=== PATIENT | female | born 1940 | race Caucasian/White ===

== ENCOUNTER 2018-02-27 13:40 | Emergency (ER) | payer SELFPAY ==
[~2018-02-27] VITALS: Ht 152.4 cm; Wt 88.5 kg
[~2018-02-27 13:40] MED LIST: ASPIR 8181 MG PO; IBUPROFEN600 MG PO; LAC PO; LEVAQUIN500 MG PO; LIPITOR80 MG PO; MOTRIN800 MG PO; PRILOSEC20 MG PO; ZES10 PO
[2018-02-27 18:27] VITALS: BP 148/80
== END 2018-02-27 18:27 | disposition home or self-care (01) ==
LOC: ED 13:40
DX: M75.31 Calcific tendinitis of right shoulder (principal); E78.00 Pure hypercholesterolemia, unspecified; Z98.890 Other specified postprocedural states
CPT/HCPCS: Q0092

== ENCOUNTER 2019-09-10 07:58 | Emergency (ER) | payer MEDICAID ==
[~2019-09-10] VITALS: Ht 160 cm; Wt 91.6 kg
[2019-09-10 08:07] VITALS: Ht 160 cm; Wt 91.6 kg
[2019-09-10 09:23] LABS: BASOPHIL % 0.9 % (0-2); PLATELET COUNT 261 x10^3mcL (130-400); RED CELL DISTRIBUTION WIDTH 14.4 % (11.5-14.5)
[2019-09-10 09:55] LABS: ALBUMIN 3.5 g/dL (3.4-5.0); ALKALINE PHOSPHATASE 109 U/L (46-116); ALT/SGPT 33 U/L (14-59); AST/SGOT 23 U/L (15-37); BILIRUBIN TOTAL 0.2 mg/dL (0.20-1.00); CARBON DIOXIDE 26.8 mmol/L (21-32); CHLORIDE SERUM 103 mmol/L (98-107); CREATININE SERUM 0.8 mg/dL (0.6-1.0); GLUCOSE SERUM 139 mg/dL (74-106); LIPASE 157 IU/L (73-393); POTASSIUM SERUM 3.8 mmol/L (3.5-5.1); SODIUM SERUM 139 mmol/L (136-145); TOTAL PROTEIN, SERUM 7.6 g/dL (6.4-8.2)
[2019-09-10 10:05] LABS: CALCIUM 8.7 mg/dL (8.5-10.1)
[2019-09-10 14:11] VITALS: BP 161/89
== END 2019-09-10 12:00 | disposition home or self-care (01) ==
LOC: ED 07:58
PROVIDERS: Emergency Medicine
DX: J18.1 Lobar pneumonia, unspecified organism (principal); R10.30 Lower abdominal pain, unspecified; R73.9 Hyperglycemia, unspecified; I10 Essential (primary) hypertension; K57.90 Diverticulosis of intestine, part unspecified, without perforation or abscess without bleeding; R19.09 Other intra-abdominal and pelvic swelling, mass and lump
CPT/HCPCS: J0456; J0696; J7050; J7060; Q0092; Q9967

== ENCOUNTER 2019-12-16 14:52 | Inpatient (IN) | payer MEDICAID, SELFPAY ==
[~2019-12-16] VITALS: Ht 144.8 cm; Wt 99.8 kg
[2019-12-16 15:50] LABS: BASOPHIL % 1.1 % (0-2); PLATELET COUNT 247 x10^3mcL (130-400)
[2019-12-16 16:06] LABS: CALCIUM 8.9 mg/dL (8.5-10.1); CARBON DIOXIDE 28.4 mmol/L (21-32); CHLORIDE SERUM 106 mmol/L (98-107); CREATININE SERUM 1.3 mg/dL (0.6-1.0); GLUCOSE SERUM 149 mg/dL (74-106); POTASSIUM SERUM 3.7 mmol/L (3.5-5.1); SODIUM SERUM 141 mmol/L (136-145)
[2019-12-16 16:11] LABS: ALBUMIN 3.4 g/dL (3.4-5.0); ALKALINE PHOSPHATASE 99 U/L (46-116); ALT/SGPT 35 U/L (14-59); AST/SGOT 23 U/L (15-37); BILIRUBIN TOTAL 0.27 mg/dL (0.20-1.00); C REACTIVE PROTEIN 1.2 mg/dL (<=0.9); LACTIC DEHYDROGENASE (LDH) 187 U/L (100-190); TOTAL PROTEIN, SERUM 7.5 g/dL (6.4-8.2)
--- NOTE | 2019-12-16 16:28 | NUR ---
PT PRESENTS TO ED FOR EVAL OF "NOT FEELING WELL FOR MORE THAN ONE MONTH"; PT STS HAS INCREASE OF SOB X 2 DAYS; PT HAS BEEN SEEN BY PROVIDER, ORDERS RECD; PT HAS HAD LABS DRAWN/SENT AND NASAL SWABS COMPLETED; CONT TO MONITOR
--- NOTE | 2019-12-16 17:57 | NUR ---
PT RESULTS RTND, PT WILL BE ADMITTED FOR FURTHER EVAL OF POSSIBLE CHF FINDINGS PER ED PROVIDER; PT VERBALIZED UNDERSTANDING
--- NOTE | 2019-12-16 18:02 | NUR ---
PT ALSO FOUND TO BE FLU POSITIVE, ADDITIONAL ORDERS RECD
--- NOTE | 2019-12-16 18:25 | NUR ---
PT ASSESSED BY HOSPITALIST; MEDICATED PER ORDER, WAITING ON BED ASSIGNMENT
--- NOTE | 2019-12-16 18:36 | NUR ---
PT AMBULATED BY SELF TO BR, ERIC WELL, PT GAIT STEADY; WAITING ON BED ASSIGNMENT
--- NOTE | 2019-12-16 19:13 | NUR ---
REPORT GIVEN TO TRINIDAD ARANGO; PT NEEDING ADÁN COVID PRIOR TO TRANSPORT
--- NOTE | 2019-12-16 19:21 | NUR ---
.[id number] REPORT FROM OFF-GOING RN. PT IS LYING IN A SUPIMNE POSITION ON THE GURNEY IN ROOM 7. P0T APPEARS WITH NO DITRESS. UP TO THE BATHROOM TO VOID. AMBULATED WITH A STEADY GATE. PT STATES SHE GOES BACK AND FORTH FROM [place] TO HERE. SHE SAID YOU HAVE TO TAKE CARE OF ME. SHE WQAS VERY UNCOFORTable during THE COVID TESTING.PT IS ADMITTED ; JUST WAITING FOR THE SOP-HIA COVID TEAST TO RESULT.
[2019-12-16 19:46] LABS: CHOLESTEROL/HDL RATIO 4.4
--- NOTE | 2019-12-16 20:10 | NUR ---
PT'S SHIV- JEROME CAME BACK NEGATIVE
[2019-12-16 20:35] LABS: microscopic required? NO
[2019-12-16 20:45] LABS: UA SPECIFIC GRAVITY 1.015 (1.005-1.035); urine erythrocyte NEGATIVE (NEGATIVE)
[2019-12-16 21:19] VITALS: BP 147/53
--- NOTE | 2019-12-16 21:38 | NUR ---
RECEIVED PT FROM ER, PT ADMIT FOR NEW ONSET CHF. PT IS A/O X4, VERBAL RESPONSIVE. LUNG SOUND CLEAR BILATERAL, NO COUGH, NO SOB. PT IS ON TELE 8, NSR, DENY ANY CHEST PAIN OR DISCOMFORT, BOWEL SOUND PRESENT ALL 4 QUADRANTS, NO DISTENTION, NO TENDER. PEDAL PULSE PRESENT BOTH FEET, NO EDEMA, IV AT LEFT HAND, NO LEAKING, NO INFILTRATION. ALL ADLS ASSIST, ALL NEED MET, CALL LIGHT IN REACH, WILL CONTINUE TO MONITOR. PT IS ON DROPLET PRECAUTION FOR R/O COVID.
--- NOTE | 2019-12-16 23:00 | NUR ---
PATIENT IN BED. NO ACUTE DISTRESS NOTED. ADMITTED TO ROOM 210B. PATIENT AMBULATED WITH A STEADY GAIT. WILL CONTINUE TO MONITOR.
--- NOTE | 2019-12-17 00:58 | NUR ---
NO CHANGE TO PATIENT'S CURRENT ASSESSMENT.
[2019-12-17 05:45] VITALS: BP 142/52
--- NOTE | 2019-12-17 05:59 | NUR ---
PATIENT IN BED. NO CHANGES NOTED TO PATIENT'S CURRENT ASSESSMENT.
--- NOTE | 2019-12-17 07:30 | NUR ---
RECEIVED PT FROM PM NURSE. PT IS AWAKE AND RESTING COMFORTABLY AT THIS TIME. NO SIGNS OF FACIAL DISTRESS OR SOB NOTED. PT IS A/OX4. INDONESIAN SPEAKING. ABLE TO MAKE NEEDS KNOWN. DENIES MATHIS/DIZZINESS. DIMINISHED LUNG SOUNDS BILATERALLY. BREATHING E/U ON RA. TELE #8. NSR. DENIES CP/PRESSURE. PALPABLE PULSES. NO EDEMA NOTED. ACTIVE BSX4. ABD SOFT AND ROUND. DENIES N/V/D. VOIDS FREELY. SKIN INTACT. NO C/O PAIN AT THIS TIME. IV 22 TO L HAND. SL. PATENT. FLUSHES WITH NO DIFFICULTY. BED AT LOWEST POSITION. CALL BUTTON WITHIN REACH. WILL CONTINUE TO MONITOR.
[2019-12-17 08:07] LABS: CALCIUM 8.8 mg/dL (8.5-10.1); CARBON DIOXIDE 29.3 mmol/L (21-32); CHLORIDE SERUM 103 mmol/L (98-107); CREATININE SERUM 0.8 mg/dL (0.6-1.0); GLUCOSE SERUM 122 mg/dL (74-106); MAGNESIUM 2.2 mg/dL (1.8-2.4); PHOSPHOROUS 3.8 mg/dL (2.5-4.9); POTASSIUM SERUM 3.5 mmol/L (3.5-5.1); SODIUM SERUM 140 mmol/L (136-145)
[2019-12-17 08:40] VITALS: BP 109/47
[2019-12-17 08:46] LABS: BASOPHIL % 0.6 % (0-2); PLATELET COUNT 250 x10^3mcL (130-400); RED CELL DISTRIBUTION WIDTH 14.3 % (11.5-14.5)
[2019-12-17 13:13] VITALS: BP 146/57
[2019-12-17 14:00] VITALS: BP 153/76
--- NOTE | 2019-12-17 14:17 | NUR ---
Discount pharmacy card and list to [facility] cost medical clinics given to Thang Valdez and he will hand it to patient.
--- NOTE | 2019-12-17 18:39 | NUR ---
NO ACUTE DISTRESS NOTED DURING SHIFT. WILL ENDORSE CARE TO PM SHIFT FOR CONTINUITY OF CARE.
--- NOTE | 2019-12-17 20:12 | NUR ---
PT RECIEVED AAO REG RESP NO SOB R/A SAT 97% PT SITTING ON THE CHAIR,PT HAS HL TO THE LT HAND WITH THE SITE PATENT AND INTACT,PT ON TELE MONITOR AND IN NSR NO ECTOPY OR CHEST PAIN AT THSI TIME,CALL LIGHT EASY REACHED AND WILL CONTINUE TO MONITOR.
[2019-12-17 22:25] VITALS: BP 143/39
[2019-12-18 06:28] VITALS: BP 142/50
--- NOTE | 2019-12-18 06:51 | NUR ---
PT HAD A RESTING NIGHT NO CHANGE AT THIS TIME,WILL CONTINUE TO MONITOR.
[2019-12-18 07:01] LABS: BASOPHIL % 0.7 % (0-2); PLATELET COUNT 241 x10^3mcL (130-400); RED CELL DISTRIBUTION WIDTH 14.3 % (11.5-14.5)
--- NOTE | 2019-12-18 07:17 | NUR ---
RECEIVED PATIENT FROM TRINIDAD GOODSON. PATIENT IN INFLUENZA ISOLATION AT THIS TIME, WILL SPEAK WITH PATIENT ABOUT PLAN OF CARE DURING MORNING ROUNDS.
[2019-12-18 07:37] LABS: CALCIUM 9.1 mg/dL (8.5-10.1); CARBON DIOXIDE 26.3 mmol/L (21-32); CHLORIDE SERUM 100 mmol/L (98-107); CREATININE SERUM 0.7 mg/dL (0.6-1.0); GLUCOSE SERUM 153 mg/dL (74-106); MAGNESIUM 2.1 mg/dL (1.8-2.4); PHOSPHOROUS 3.5 mg/dL (2.5-4.9); POTASSIUM SERUM 3.7 mmol/L (3.5-5.1); SODIUM SERUM 135 mmol/L (136-145)
--- NOTE | 2019-12-18 08:01 | NUR ---
PATIENT OBSERVED LAYING IN BED. KINYARWANDA SPEAKING. STATES SHE IS FEELING PAIN TO HER LEFT ARM. SPOKE WITH PATIENT ABOUT MEDICATIONS AND PLAN FOR THE DAY. PATIENT VERBALIZES UNDERSTANDING AT THIS TIME. WILL CONTINUE TO MONITOR, CALL LIGHT IN REACH. NO S/S OF CHEST PAIN OR SOB.
--- NOTE | 2019-12-18 09:56 | NUR ---
ECHOCARDIOGRAM PENDING-COVID RESULTS PENDING
[2019-12-18 10:06] VITALS: BP 110/50
--- NOTE | 2019-12-18 10:49 | NUR ---
SPOKE WITH PATIENT GRANDDAUGHTER ABOUT PATIENT PLAN OF CARE AND PATIENT CONDITION. UPDATED HER TO PATIENT DIAGNOSIS OF INFLUENZA A AND CHF. EXPLAINED DISEASE PROCESS TO GRANDDAUGHTER. ALL QUESTIONS ADDRESSED AT THIS TIME. PATIENT IN BED ASLEEP, NO SOB NOTED. CALL LIGHT IN REACH.
[2019-12-18 13:46] VITALS: BP 142/53
[2019-12-18 18:25] VITALS: BP 133/51
--- NOTE | 2019-12-18 18:46 | NUR ---
PATIENT OBSERVED AMBULATING TO AND FROM BATHROOM. TRINIDAD GUTHRIE ASSIST WITH TRANSLATION WITH PATIENT. EXPLAINED TO PATIENT THAT SHE HAS THE FLU AND NEW DIAGNOSIS OF CHF. PATIENT HAS CONCERNS ABOUT HEART FAILURE AND STATES SHE DOES NOT HAVE INSURANCE. INFORMED PATIENT THAT THIS NURSE HAD SPOKEN TO HER TWO GRANDDAUGHTERS TO EXPLAIN PLAN OF CARE AND TREATMENT. PATIENT BACK IN BED AT THIS TIME, STATING THAT SHE HAS MILD PAIN TO HER BACK AND SHOULDERS. ALL QUESTIONS ADDRESSED AT THIS TIME, PATIENT LIKELY TO HAVE ADDITIONAL QUESTIONS. WILL ENDORSE TO ONCOMING NURSE.
--- NOTE | 2019-12-18 19:30 | NUR ---
RECEIVED REPORT FROM LORRI ABDI. PT IS AAOX4 AND VATICAN CITIZEN SPEAKING ONLY. PT DENIES MATHIS/DIZZINESS. PT ON TELE #8, NSR W/ PAC'S AND HR 83. PT DENIES CP/PRESSURE. PT PULSES PALPABLE AND CAP REFILL <3 SEC. PT LUNG SOUNDS DIMINISHED ON RA. PT BREATHING E/U. PT DENIES SOB OR RESP DISTRESS. PT ABD SOFT/ROUND WITH ACTIVE BS X4. PT DENIES N/V/C/D. PT VOIDS FREELY WITH BRP. PT IS AMBULATORY. PT SKIN INTACT. PT DENIES S/S OF PAIN OR DISCOMFORT. PT IV TO PATENT/INTACT/SL. PT ON DROPLET ISOLATION FOR INFLUENZA A(+) AND PENDING COVID PCR TEST. ALL NEEDS MET AT THIS TIME. CALL LIGHT WITHIN REACH. BED IN LOWEST POSITION. SIDE RAILS X2 UP. WILL CONTINUE TO MONITOR.
[2019-12-18 21:07] VITALS: BP 108/55
--- NOTE | 2019-12-18 23:03 | NUR ---
PT RESTING COMFORTABLY WITH EYES CLOSED, EASILY AROUSABLE. NO ACUTE DISTRESS NOTED. PT BREATHING E/U ON RA. ALL NEEDS MET. WILL CONTINUE TO MONITOR.
--- NOTE | 2019-12-19 03:20 | NUR ---
PT RESTING COMFORTABLY WITH EYES CLOSED, EASILY AROUSABLE. NO ACUTE DISTRESS NOTED. PT BREATHING E/U ON RA. ALL NEEDS MET. WILL CONTINUE TO MONITOR.
[2019-12-19 05:38] VITALS: BP 126/45
--- NOTE | 2019-12-19 06:29 | NUR ---
PT RESTED COMFORTABLY DURING THE NIGHT WITH NO ACUTE DISTRESS NOTED. PT BREATHING E/U ON RA. PT C/O ABD PAIN 5/10 THIS AM. PER EMAR, ADMINISTERED NORCO PO FOR PAIN. WILL REASSESS PAIN. COMFORT AND SAFETY MEASURES MAINTAINED. ALL QUESTIONS AND CONCERNS ADDRESSED. CALL LIGHT WITHIN REACH. BED IN LOWEST POSITION. SIDE RAILS X2 UP. DROPLET+CONTACT PRECAUTIONS MAINTAINED. WILL ENDORSE TO DAY SHIFT NURSE.
[2019-12-19 07:30] VITALS: BP 105/48
--- NOTE | 2019-12-19 08:20 | NUR ---
RECIEVED PT FROM PREVIOUS SHIFT. THE PT IS RESTING IN BED. PT BREATHING IS EVEN AND UNLABORED ON ROOM AIR. IN NO APPARENT DISTRESS. THE PT HAS AN IV TO THE LEFT HAND THE DRESSING IS C/D/I. PT HAS BEDSIDE COMODE AT [facility]. THE BED IS IN THE LOWEST POSITION AND THE CALL LIGHT IS WITHIN REACH. WILL CONTINUE TO MONITOR.
--- NOTE | 2019-12-19 08:43 | NUR ---
CALLED LAB REGAUKARIING PT COVID TEST. LAB SAID THAT THE SWAB WAS SENT AND THEY ARE STILL WAITING FOR RESULTS TO COME BACK.
--- NOTE | 2019-12-19 09:02 | NUR ---
SPOKE WITH [employer]CIAL [employer] SOFTWARE DEVELOPER CHERYL WILL DO ECHO WITHIN THE NEXT HOUR TO 1 HOUR AND HALF.
--- NOTE | 2019-12-19 11:11 | NUR ---
RECEIVED CALL FROM [employer], PER RESEARCH QUALITY ASSURANCE SPECIALISTJUANITA LUNA PT IS REALLY CONFUSED. CHECKED ON PT PT ABLE TO ANSWER ALL ORIENTATION QUESTIONS, PT REPORTS HAVING ABDOMINAL PAIN STILL, AND HAVE SHOULDER PAIN AND LEFT ARM PAIN, DIANN LAUREANO MADE AWARE, PER DIANN LAUREANO GIVEN LACTULOSE 30 ML PO ONCE SINCE LAST BM WAS 12/15 AND ORDER TORADOL 15 MG IVP Q8HR TO HELP WITH SHOULDER AND ARM PAIN, ORDERS PLACED ACCORDINGLY WILL CARRY OUT.
[2019-12-19 12:30] VITALS: BP 128/58
--- NOTE | 2019-12-19 14:15 | NUR ---
DR. JORDAN AT BEDSIDE, PER DR. JORDAN PT IS CLEARED FROM CARDIAC STANDPOINT.
--- NOTE | 2019-12-19 16:00 | NUR ---
PT TRANSFERED TO MED/SURG. TELE 8 WAS REMOVED AND RETURNED TO THE MOHEL.
--- NOTE | 2019-12-19 18:58 | NUR ---
PT IS SLEEPING IN BED. PT BREATHING IS EVEN AND UNLABORED ON ROOM AIR. PT HAS IV TO THE LEFT HAND. PT BED IS IN THE LOWEST POSTIION AND CALL LIGHT ISWITHIN REACH. WILL ENDORSE TO ONCOMING SHIFT.
[2019-12-19 19:20] VITALS: BP 122/47
--- NOTE | 2019-12-19 19:20 | NUR ---
RECEIVED PT AWAKE ALERT AND VERBALLY RESPONSIVE IN ROMANSH ONLY.BREATHING EASY AND NON-LABORED.DENIES CHESTPAIN.BP 122/47 MMHG,HR 74.EPISODES OF DIARRHEA AFTER ADMINISTRATION OF LACTULOSE EARLIER.ON DROPLET PRECAUTION FOR COVID/PUI.WILL OBSERVE PROTOCOL.WILL CONTINUE TO MONITOR.
--- NOTE | 2019-12-20 04:35 | NUR ---
PT SLEPT WELL ALL NIGHT.DENIES ANY PAIN OR DISCOMFORT.+ BM AFTER LACTULOSE.ON DROPLET PRECAUTION FOR PUI/COVID.GOODHANDWASHING TECHNIQUE OBSERVED.ALL NEEDS MET.WILL CONTINUE TO MONITOR.
[2019-12-20 05:33] VITALS: BP 137/45
[2019-12-20 06:58] LABS: BASOPHIL % 0.4 % (0-2); PLATELET COUNT 263 x10^3mcL (130-400); RED CELL DISTRIBUTION WIDTH 14.1 % (11.5-14.5)
[2019-12-20 07:10] LABS: CALCIUM 9.5 mg/dL (8.5-10.1); CARBON DIOXIDE 29.4 mmol/L (21-32); CHLORIDE SERUM 99 mmol/L (98-107); CREATININE SERUM 0.8 mg/dL (0.6-1.0); GLUCOSE SERUM 121 mg/dL (74-106); SODIUM SERUM 135 mmol/L (136-145)
--- NOTE | 2019-12-20 08:00 | NUR ---
RECEIVED PATIENT RATHER OBESE AND SEEMS MINIMAL MOBILTTY. SHE HAS DIMINSHED BREATH SOUNDS AND HEARD DRY COUGH. SHE HAS BEEN ON BDREST AND IS ABLE TO AMBULATE, BUT SEEMS TIRE AND NOT MOTIVATED AT THIS TIME SHE HAS BEEN GIVEN LASIX AND WILL MONITO TOTUPUT. SHE HAS BEEN WIT MILD CARDIOMEGALY AD INTERSTITIAL PULMONIARY EDEMA. IT SUGGESTS SHE HAS CHF AND SHE HAS HISTOYR OF HTN AND DIABETES WELL. PATIENT HASBEEN SEEN BY DR JORDAN AND SHE HAS BEEN REQUESTNG PAIN MEDICATIO NFO RPAIN AND NORCO AND TORADOL HAVE BEEN GIVEN. SHE HAS GOO EF AND SHE IS SPAINISH SPEAKING ONLY. ENCOURAGE TO DEEP BREATH OFTEN. ENCOURAGE TO AMBULATE TOLERATED AND TO EAT DIET AND FLUIDS TOLERATED.
[2019-12-20 09:44] VITALS: BP 153/54
[2019-12-20] MEDS ORDERED: ATORVASTATIN CA40 M1 PO (10:46)
[2019-12-20] MEDS ORDERED: MUCINEX600 MG PO (10:48)
[2019-12-20] MEDS ORDERED: OSELTAMIVIR PHO30 MG PO (10:50)
--- NOTE | 2019-12-20 11:45 | NUR ---
GAVE PAIN MEDICATION FOR COMPLAINTS OF SHOULDER PAIN. NORCO GIVEN. BLOOD SUGAR AT THIS TIME AT 128 AND NO COVERAGE WAS INDICATED.
[2019-12-20 12:52] VITALS: BP 153/54
[2019-12-20 12:54] VITALS: BP 144/60
--- NOTE | 2019-12-20 13:32 | NUR ---
ORDER FOR DISCHARGE RECEIVED. ISELA PAINTING GAVE A HAND OUT FOR CLASES FOR DIABETES. SHE IS NEW ONSET OF DIABETES WELL CHF. A HALF HOUR LATER THE NETWORK LIAISON CAME AND WANTS THE PATIENT TO SCHEDULE HERSELF FOR HIS CLASS IN [facility]. PATIENT. SHE IS TO CALL ISELA FOR SIGN UP FOR CLASSES IF SHE FEELS NEEDED. HAND OUT GIVEN WITH THE DISCHARGE PAPERWORK PLANNED.
--- NOTE | 2019-12-20 14:20 | NUR ---
Initial Nutrition Assessment - [address] 79Y HR Dx: New Onset CHF PMHx: PNA PSHx: , Hernia Repair Labs: (12/19) WBC 12.1H, NA 135L, BUN 20H, BG 121H, POCBG 131H (12/16) CRP 1.2H, CHOL 225H, LDL 153H, D-dimer 463H, A1C 6.7H Meds: Lipitor, Oseltamivir, Colace PRN meds: Toradol, Colace, [place] Diet: Cardiac Diet PO intake since admission: 88% PO average X 6 meals (flowsheets) Ht: 144.78cm/ 4'8" Wt: 99.79kg/ 219lbs BMI: 47.6 Bed scale: 220# IBW: 43kg/ 95lbs %IBW: 230% UBW: 202lbs Age: 79 Food Allergies: NKFA Skin condition: intact Jared: 20 Edema: pulmonary edema, no other Last BM: 12/18 Per H&P: 79 yo female with no PMHx who presented to ED for SOB and body aches for the past month. Per remberto review patient was previously here in August with a pneumonia, given Doxycycline, and discharged home. Today she presents with similar shortness of breath, headache, body ache, and shoulder pain. She mentioned that her right shoulder hurts and then to the back, but could not quantify it. She also states that her legs have been getting more swollen for the past [address] 12/19: Assessment completed, isolation spoke via phone. Has been eating well has COVID pending and found positive for influenza A on Tamiflu. Has new onset DM2 with HGB A1C of 6.7H and elevated blood sugars. Education given via phone and recommended to attend diabetes education class on Friday afternoon, RN to tell patient. Per patient appetite good this morning affected by medication per Pt, so less than usual. Her average intake per flowsheets is adequate. Will continue to monitor. Problem with: N/V/D/C: Problems with: Chewing: Swallowing: Current appetite: Good most of the day Recent wt change: weight gain unsure %wt change: Vitamin/Supplement use: none Special diet at home: Regular diet Physical activity: unknown Nutrition education given (specify specific nutrition education and handout given): Food-drug interactions? Education given? Estimated Nutritional Needs Based on IBW (43kg) body weight Energy: 1075- 1290 kcal/day (25-30 kcal/kg) Protein: 43- 52 g/day (1.0-1.2 g/kg) Fluid: mL/day (1 mL/kcal) Nutrition Diagnosis: Altered nutrient related labs R/T metabolic dysfunction AEB A1C 6.7H, BG 121H, POCBG 131H, and WBC count 12H Increased nutrient needs R/T viral infection AEB positive for influenza A, prior COVID 19 infection Intervention 1. Consider adjustment to a CCHO (45gm)/Cardiac Diet to best meet blood sugar control and energy needs. Monitor/Evaluate Goal: PO intake at least 75% of estimated needs Monitor: PO intake, Labs, GI function F/U in 3-5 days as moderate risk 12/22-
--- NOTE | 2019-12-20 14:23 | NUR ---
1. Consider adjustment to a CCHO (45gm)/Cardiac Diet to best meet blood sugar control and energy needs.
[2019-12-20 15:45] VITALS: BP 138/60
--- NOTE | 2019-12-20 18:00 | NUR ---
HAD TO WALK THE PATIENT DOWN TO HAVE FAMILY SIGN SHE STARTED TO BUT THEN STOPPED AND WANTS THE FAMILY TO SIGN. WENT OVER THE PLAN OF CARE AND ADVISED THE PATIENT IS WITH CHF AND DIABETES AND SHE IS IN DENIAL OF THE DIABETES. ADVISE TO FOLLOW UP TO THE CLINIC ON THE DISHCARGE PAPERWORK AND TO TAKE MEDICATION SHE HAS HAD SENT TO HER PHARMACY OF HER CHOICE.
--- NOTE | 2019-12-20 18:05 | NUR ---
SPOKE WITH THE GRANDDAUGHTER ABOUT DISCHARGE. PATIENT THOUGH SEEMS SHE ISNOT WANTING TO LEAVE. SHE HAS NO REASON FOR STAYING BUT WANTS TO BE SEEN. ADVISED THE DOCTORS SFIND SHE HAS NO REASON TO STAY ANY LONGER AND WILL NEED TO FOLLOW UP WITH A DOCTOR OUT PATIENT. SHE HAS DIABETES AND CHF. SHE NEEDS TO ADDRESS HER ISSUES AND LEARN TO LIVE WIT HER DIABETES AND CHF. MEDICATIONS HAVE BEEN ORDERED AND DISCHARGE TEACHING IN [facility] WAS PREPARED PER THE FAMILY REQUEST. THEY ARE TO PICKUP HER GRANDMOTHER IN AN HOUR. AWAITING DEPUTY DIRECTOR AND WILL GO OVER THE PATIENT PAPERWORK AT THAT TIME.
--- NOTE | 2019-12-20 18:52 | NUR ---
[facility] SHE STRTED TO BUT THEN STOPPED AND WANTS THE FAMILY TO SIGN. WENT OVER THE PLAN OF CARE AND ADVISE THE PATIEN TIS WITH CHF AND DIABETES AND SHE IS IN DENIAL OF THE DIABETES. ADVIS ETO FOLLOW UP TO [facility] ON THE DISHCAR GEPAPERWORK AND TO TAKE MEDICATION SHE HAS HAD SENT TO HER PHARMACY OF HER CHOICE.
== END 2019-12-20 18:52 | disposition home or self-care (01) | DRG 113 ==
LOC: ED 14:52 → DU 17:45 → MU 17:45 → DU 20:25 → MU 12-19 16:45
PROVIDERS: Emergency Medicine; ADMIT Family Medicine; ATTEND Family Medicine
DX: J09.X2 Influenza due to identified novel influenza A virus with other respiratory manifestations (principal); N17.9 Acute kidney failure, unspecified; E11.9 Type 2 diabetes mellitus without complications; I11.0 Hypertensive heart disease with heart failure; I50.32 Chronic diastolic (congestive) heart failure; E78.5 Hyperlipidemia, unspecified; E78.00 Pure hypercholesterolemia, unspecified; Z20.828 Contact with and (suspected) exposure to other viral communicable diseases; Z90.49 Acquired absence of other specified parts of digestive tract
CPT/HCPCS: 82962; 83880; 85378; 87804; G0378; J1885; J1940; Q0092; U0003-CS